=== PATIENT | male | born 1945 | race Caucasian/White ===

== ENCOUNTER 2017-10-03 14:39 | Emergency (ER) | payer OTHER ==
[~2017-10-03] VITALS: Ht 177.8 cm; Wt 90.7 kg
[~2017-10-03 14:39] MED LIST: ATORVASTATIN CA40 M1; AUGMENTIN1 TA2 PO; DIPHENOXYLATE W1 TAB; LAC PO; METFORMIN ER500 M1 PO; METOPROLOL SUCC25 M1; OMEPRAZOLE DR20 M1 PO
[2017-10-03 14:47] VITALS: Ht 177.8 cm; Wt 90.7 kg
[2017-10-03 15:28] LABS: BASOPHIL % 1.1 % (0-2); PLATELET COUNT 249 x10^3mcL (130-400)
[2017-10-03 16:26] LABS: CALCIUM 9.1 mg/dL (8.5-10.1); CARBON DIOXIDE 24.4 mmol/L (21-32); CHLORIDE SERUM 103 mmol/L (98-107); CREATININE SERUM 0.9 mg/dL (0.7-1.3); GLUCOSE SERUM 80 mg/dL (74-106); SODIUM SERUM 139 mmol/L (136-145)
[2017-10-03 16:30] LABS: ALBUMIN 3.5 g/dL (3.4-5.0); ALKALINE PHOSPHATASE 63 U/L (46-116); ALT/SGPT 32 U/L (16-63); AST/SGOT 26 U/L (15-37); BILIRUBIN TOTAL 0.2 mg/dL (0.20-1.00); TOTAL PROTEIN, SERUM 7.2 g/dL (6.4-8.2)
[2017-10-03 17:40] VITALS: BP 144/68
== END 2017-10-03 17:36 | disposition home or self-care (01) ==
LOC: ED 14:39
PROVIDERS: Emergency Medicine
DX: F41.9 Anxiety disorder, unspecified (principal); I10 Essential (primary) hypertension; E11.9 Type 2 diabetes mellitus without complications; E78.00 Pure hypercholesterolemia, unspecified; K21.9 Gastro-esophageal reflux disease without esophagitis; Z90.49 Acquired absence of other specified parts of digestive tract
CPT/HCPCS: 36415; 83880; 85378; Q0092

== ENCOUNTER 2017-10-04 11:17 | Inpatient (IN) | payer OTHER ==
[~2017-10-04] VITALS: Ht 172.7 cm; Wt 85.0 kg
[2017-10-04 11:30] VITALS: Ht 172.7 cm; Wt 85.0 kg
[2017-10-04 12:32] LABS: BASOPHIL % 0.6 % (0-2); PLATELET COUNT 249 x10^3mcL (130-400)
[2017-10-04 12:33] LABS: RED CELL DISTRIBUTION WIDTH 16.1 % (11.5-14.5)
[2017-10-04 12:43] LABS: ALBUMIN 3.5 g/dL (3.4-5.0); ALKALINE PHOSPHATASE 60 U/L (46-116); ALT/SGPT 32 U/L (16-63); AST/SGOT 21 U/L (15-37); BILIRUBIN TOTAL 0.23 mg/dL (0.20-1.00); C REACTIVE PROTEIN 1.2 mg/dL (<=0.9); CALCIUM 8.6 mg/dL (8.5-10.1); CARBON DIOXIDE 24.6 mmol/L (21-32); CHLORIDE SERUM 103 mmol/L (98-107); GLUCOSE SERUM 173 mg/dL (74-106); POTASSIUM SERUM 4.3 mmol/L (3.5-5.1); SODIUM SERUM 138 mmol/L (136-145); TOTAL PROTEIN, SERUM 7.1 g/dL (6.4-8.2)
[2017-10-04 12:50] LABS: CREATININE SERUM 1.1 mg/dL (0.7-1.3)
[2017-10-04 12:54] LABS: UA SPECIFIC GRAVITY 1.025 (1.005-1.035); microscopic required? YES; urine erythrocyte NEGATIVE (NEGATIVE)
[2017-10-04 12:57] LABS: T3 TOTAL 1.02 ng/mL
[2017-10-04 12:58] LABS: CK-MB < 0.5 ng/mL (0-3.6); CREATINE KINASE 42 U/L (39-308)
[2017-10-04 12:59] LABS: FREE T4 0.77 ng/dL (0.76-1.46); FREE THYROXINE INDEX 2.3 ug/dL (1.4-4.5); T4(THYROXINE) 6.7 ug/dL (4.7-13.3)
[2017-10-04 13:27] LABS: ERYTHROCYTE SED RATE 33 mm/hr (0-20)
[2017-10-04 13:52] VITALS: BP 131/66
[2017-10-04 14:21] VITALS: BP 153/61
[2017-10-04 15:02] LABS: MAGNESIUM 2.7 mg/dL (1.8-2.4); PHOSPHOROUS 3.4 mg/dL (2.5-4.9)
[2017-10-04 15:05] LABS: CHOLESTEROL/HDL RATIO 5.5
[2017-10-04 21:11] VITALS: BP 132/56
[2017-10-05 05:41] VITALS: BP 108/57
[2017-10-05 07:06] LABS: PLATELET COUNT 259 x10^3mcL (130-400)
[2017-10-05 07:15] LABS: RED CELL DISTRIBUTION WIDTH 15.9 % (11.5-14.5)
[2017-10-05 07:52] LABS: CARBON DIOXIDE 25.1 mmol/L (21-32); CHLORIDE SERUM 103 mmol/L (98-107); GLUCOSE SERUM 144 mg/dL (74-106); MAGNESIUM 2.3 mg/dL (1.8-2.4); PHOSPHOROUS 2.7 mg/dL (2.5-4.9); POTASSIUM SERUM 4.7 mmol/L (3.5-5.1); SODIUM SERUM 137 mmol/L (136-145)
[2017-10-05 09:36] LABS: BAND NEUTROPHIL 8 % (0-10); BASOPHIL 0 % (0-2); METAMYELOCTE 2 % (0-2); MONOCYTE 2 % (0-7); MYELOCYTE 3 % (0-2); SEGMENTED NEUTROPHILS 79 % (37-75); rbc morphology (normal/abnorm) ABNORMAL (NORMAL)
[2017-10-05 09:38] LABS: PLATELET MORPHOLOGY PLATELETS NORMAL
[2017-10-05 09:51] VITALS: BP 114/72
[2017-10-05 12:31] VITALS: BP 125/61
[2017-10-05 17:06] VITALS: BP 117/55
[2017-10-05 21:49] VITALS: BP 123/58
[2017-10-06 05:06] VITALS: BP 130/62
[2017-10-06 06:57] LABS: CALCIUM 8.4 mg/dL (8.5-10.1); CARBON DIOXIDE 25.6 mmol/L (21-32); CHLORIDE SERUM 103 mmol/L (98-107); CREATININE SERUM 1.2 mg/dL (0.7-1.3); GLUCOSE SERUM 130 mg/dL (74-106); MAGNESIUM 2.4 mg/dL (1.8-2.4); PHOSPHOROUS 3.2 mg/dL (2.5-4.9); POTASSIUM SERUM 4.3 mmol/L (3.5-5.1); SODIUM SERUM 140 mmol/L (136-145)
[2017-10-06 07:11] LABS: PLATELET COUNT 241 x10^3mcL (130-400)
[2017-10-06 07:45] LABS: RED CELL DISTRIBUTION WIDTH 16.3 % (11.5-14.5)
[2017-10-06 09:39] VITALS: BP 128/52
[2017-10-06 10:55] LABS: BAND NEUTROPHIL 19 % (0-10); BASOPHIL 0 % (0-2); METAMYELOCTE 2 % (0-2); MONOCYTE 3 % (0-7); MYELOCYTE 4 % (0-2); SEGMENTED NEUTROPHILS 65 % (37-75); rbc morphology (normal/abnorm) ABNORMAL (NORMAL)
[2017-10-06 10:56] LABS: PLATELET MORPHOLOGY PLATELETS NORMAL
[2017-10-06 12:58] VITALS: BP 140/70
[2017-10-06 18:38] VITALS: BP 151/68
[2017-10-06 21:11] VITALS: BP 150/63
[2017-10-07 05:47] VITALS: BP 113/65
[2017-10-07 06:29] LABS: CALCIUM 8.3 mg/dL (8.5-10.1); CARBON DIOXIDE 25.6 mmol/L (21-32); CHLORIDE SERUM 104 mmol/L (98-107); CREATININE SERUM 1.1 mg/dL (0.7-1.3); GLUCOSE SERUM 105 mg/dL (74-106); POTASSIUM SERUM 4.2 mmol/L (3.5-5.1); SODIUM SERUM 139 mmol/L (136-145)
[2017-10-07 06:33] LABS: PLATELET COUNT 229 x10^3mcL (130-400)
[2017-10-07 06:39] LABS: RED CELL DISTRIBUTION WIDTH 16.6 % (11.5-14.5)
[2017-10-07 08:33] VITALS: BP 163/82
[2017-10-07 08:38] LABS: BAND NEUTROPHIL 8 % (0-10); BASOPHIL 0 % (0-2); MONOCYTE 7 % (0-7); SEGMENTED NEUTROPHILS 74 % (37-75)
[2017-10-07 08:40] LABS: rbc morphology (normal/abnorm) ABNORMAL (NORMAL)
[2017-10-07 13:39] VITALS: BP 155/60
[2017-10-07 16:59] VITALS: BP 150/63
[2017-10-07 17:02] VITALS: BP 150/63
[2017-10-07 20:40] VITALS: BP 163/73
[2017-10-08] VITALS (8 sets, daily range): BP systolic 120–179; BP diastolic 62–80
[2017-10-08 06:17] LABS: BASOPHIL % 0.1 % (0-2); PLATELET COUNT 234 x10^3mcL (130-400)
[2017-10-08 06:18] LABS: RED CELL DISTRIBUTION WIDTH 16.5 % (11.5-14.5)
[2017-10-08 06:22] LABS: CALCIUM 8.1 mg/dL (8.5-10.1); CHLORIDE SERUM 110 mmol/L (98-107); GLUCOSE SERUM 88 mg/dL (74-106); SODIUM SERUM 141 mmol/L (136-145)
[2017-10-09 05:36] VITALS: BP 164/76
[2017-10-09 05:38] LABS: BASOPHIL % 0.3 % (0-2); PLATELET COUNT 237 x10^3mcL (130-400)
[2017-10-09 05:56] LABS: CALCIUM 8.7 mg/dL (8.5-10.1); CARBON DIOXIDE 26.3 mmol/L (21-32); CHLORIDE SERUM 103 mmol/L (98-107); CREATININE SERUM 0.9 mg/dL (0.7-1.3); GLUCOSE SERUM 74 mg/dL (74-106); POTASSIUM SERUM 3.5 mmol/L (3.5-5.1); SODIUM SERUM 140 mmol/L (136-145)
[2017-10-09 08:25] VITALS: BP 159/67
[2017-10-09] MEDS ORDERED: LEVOFLOXACIN500 M1 PO (09:01)
[2017-10-09] MEDS ORDERED: BD LACTINEX1.4 MG PO (09:02)
[2017-10-09] MEDS ORDERED: PRE20 PO (09:03)
[2017-10-09] MEDS ORDERED: ZES20 PO (09:03)
[2017-10-09 11:18] VITALS: BP 148/75
== END 2017-10-09 12:04 | disposition home health service (06) | DRG 190 ==
LOC: ED 11:17 → MU 13:10 → DU 13:10
PROVIDERS: Family Medicine; Specialist
DX: J44.1 Chronic obstructive pulmonary disease with (acute) exacerbation (principal); N17.0 Acute kidney failure with tubular necrosis; J96.00 Acute respiratory failure, unspecified whether with hypoxia or hypercapnia; D68.69 Other thrombophilia; J44.0 Chronic obstructive pulmonary disease with (acute) lower respiratory infection; J20.9 Acute bronchitis, unspecified; E11.65 Type 2 diabetes mellitus with hyperglycemia; E11.51 Type 2 diabetes mellitus with diabetic peripheral angiopathy without gangrene; E83.41 Hypermagnesemia; I10 Essential (primary) hypertension; I25.10 Atherosclerotic heart disease of native coronary artery without angina pectoris; E78.5 Hyperlipidemia, unspecified; F17.210 Nicotine dependence, cigarettes, uncomplicated; Z68.25 Body mass index [BMI] 25.0-25.9, adult; Z95.1 Presence of aortocoronary bypass graft; Z66 Do not resuscitate
CPT/HCPCS: 36600; 83880; 84439; 94150; J1956; J2920; J2930; J3490; J7030; J7512; J7613; J7620; J7644; Q0092

== ENCOUNTER 2017-10-10 03:07 | Emergency (ER) | payer OTHER ==
[~2017-10-10] VITALS: Ht 172.7 cm; Wt 76.7 kg
[~2017-10-10 03:07] MED LIST changes: +BD LACTINEX1.4 MG PO; +LEVOFLOXACIN500 M1 PO; +PRE20 PO; +ZES20 PO
[2017-10-10 03:10] VITALS: Ht 172.7 cm; Wt 76.7 kg
[2017-10-10 03:48] LABS: BASOPHIL % 0.4 % (0-2); PLATELET COUNT 287 x10^3mcL (130-400)
[2017-10-10 03:52] LABS: CALCIUM 9.4 mg/dL (8.5-10.1); CARBON DIOXIDE 28.8 mmol/L (21-32); CHLORIDE SERUM 105 mmol/L (98-107); CREATININE SERUM 1.4 mg/dL (0.7-1.3); GLUCOSE SERUM 156 mg/dL (74-106); POTASSIUM SERUM 3.7 mmol/L (3.5-5.1); SODIUM SERUM 145 mmol/L (136-145)
[2017-10-10 04:14] LABS: ALBUMIN 3.7 g/dL (3.4-5.0); ALKALINE PHOSPHATASE 67 U/L (46-116); ALT/SGPT 55 U/L (16-63); AST/SGOT 24 U/L (15-37); BILIRUBIN TOTAL 0.38 mg/dL (0.20-1.00); TOTAL PROTEIN, SERUM 7.5 g/dL (6.4-8.2)
[2017-10-10 06:37] VITALS: BP 135/63
== END 2017-10-10 06:37 | disposition home or self-care (01) ==
LOC: ED 03:07
PROVIDERS: Emergency Medicine
DX: R06.02 Shortness of breath (principal); I10 Essential (primary) hypertension; E11.9 Type 2 diabetes mellitus without complications; E78.00 Pure hypercholesterolemia, unspecified; Z88.5 Allergy status to narcotic agent; Z88.8 Allergy status to other drugs, medicaments and biological substances
CPT/HCPCS: 36415; 83880; J1100; J2930; J7030; J7620